=== PATIENT | female | born 1975 | race Hispanic/Latino ===

== ENCOUNTER 2019-08-24 07:46 | Outpatient (CLI) | payer BC ==
--- NOTE | 2019-08-24 09:19 | CT ---
CT ABDOMEN PELVIS WITH ORAL AND IV CONTRAST: HISTORY: Right lower quadrant pain FINDINGS: The lung bases are clear. The liver demonstrates decreased attenuation compared to the spleen, consis tent with fatty infiltration. No hepatic mass or abnormal biliary ductal dilatation is seen. The spleen, pancreas, adrenal glands and kidneys are normal. No calcified gallstones are seen. No aleksander e air, free fluid in lymphadenopathy seen in the abdomen or pelvis. The small bowel loops are not abnormally dilated. A normal-appearing appendix is seen. The aorta is of normal caliber without aneur ysm. No osteolytic or osteoblastic lesions are seen. The patient is post hysterectomy. IMPRESSION: 1. Fatty liver 2. No evidence of acute process.
== END 2019-08-24 07:47 | disposition home or self-care (01) ==
LOC: SCSCT 07:46
PROVIDERS: ATTEND Internal Medicine
DX: R10.31 Right lower quadrant pain (principal); K76.0 Fatty (change of) liver, not elsewhere classified
CPT/HCPCS: 74177

== ENCOUNTER 2020-01-28 10:00 | Outpatient (CLI) | payer BC | END 2020-01-28 10:01 | disposition home or self-care (01) | LOC: DTY/OP 10:00 | PROVIDERS: ATTEND Specialist | DX: Z01.818 Encounter for other preprocedural examination (principal); E66.01 Morbid (severe) obesity due to excess calories | CPT/HCPCS: 97802 ==

== ENCOUNTER 2020-02-09 04:20 | Outpatient (CLI) | payer BC, OTHER ==
[2020-02-09 17:39] LABS: SARS-CoV-2 MS2 Positive; SARS-CoV-2 N Gene Negative; SARS-CoV-2 S Gene Negative; SARS-CoV-2 orf1ab Negative
== END 2020-02-09 04:21 | disposition home or self-care (01) ==
LOC: ERS 04:20
PROVIDERS: ATTEND Specialist
DX: Z01.812 Encounter for preprocedural laboratory examination (principal); Z11.59 Encounter for screening for other viral diseases; E66.01 Morbid (severe) obesity due to excess calories
CPT/HCPCS: 87635; U0003

== ENCOUNTER 2020-02-11 | Outpatient (CLI) | payer BC | END 2020-02-11 08:36 | disposition home or self-care (01) | DX: E66.01 Morbid (severe) obesity due to excess calories (principal) ==

== ENCOUNTER 2020-04-14 07:23 | Outpatient (CLI) | payer BC, OTHER ==
[2020-04-14 14:07] LABS: #Eosinphils 0.2 thou/uL (0.0-0.7); #Lymphocytes 2.1 thou/uL (1.20-3.40); #Monocytes 0.5 thou/uL (0.11-0.59); #Neutrophils 6.3 thou/uL (1.40-6.50); %Basophils 0.3 % (0.0-1.0); %Eosinophils 2.3 % (0.0-10.0); %Lymphocytes 23.2 % (21.0-51.0); %Monocytes 5.4 % (0.0-10.0); %Neutrophils 68.8 % (42.0-75.0); Hemoglobin 14.5 g/dL (12.0-16.0); Mean Corpuscular HGB CONC 33.7 g/dL (32.0-36.0); Mean Corpuscular Hemoglobin 29.8 pg (27.0-31.0); Mean Corpuscular Volume 88.4 fL (78.0-98.0); Platelet Count 226 thou/uL (130-400); RBC Distribution Width 13.5 % (11.5-14.5); Red Blood Cell (RBC) Count 4.89 mill/uL (4.20-5.40); White Blood Cell (WBC) Count 9.2 thou/uL (4.8-10.8)
[2020-04-14 14:09] LABS: Hemoglobin A1c 5.7 % (4.0-6.0)
[2020-04-14 14:24] LABS: Anion Gap 14 mmol/L (10-20); BUN (Urea Nitrogen) 17 mg/dL (7.0-18.7); Calc. Creatinine Clearance 0 mL/min (70-130); Calcium 9.1 mg/dL (7.8-10.44); Carbon Dioxide 25 mmol/L (22-29); Chloride 105 mmol/L (98-107); Estimated GFR-MDRD 75; Glucose 141 mg/dL (70-105); Sodium 140 mmol/L (136-145)
[2020-04-15 14:14] LABS: SARS-CoV-2 MS2 Positive; SARS-CoV-2 N Gene Positive; SARS-CoV-2 S Gene Positive; SARS-CoV-2 by NAA DETECTED (NotDetected); SARS-CoV-2 orf1ab Negative
--- NOTE | 2020-04-15 15:37 | EKG ---
Test Reason : Blood Pressure : / mmHG Vent. Rate : 067 BPM Atrial Rate : 067 BPM P-R Int : 152 ms QRS Dur : 076 ms QT Int : 428 ms P-R-T Axes : 056 041 049 degrees QTc Int : 452 ms Normal sinus rhythm Normal ECG Confirmed by DASIA SERNA ([id number]) on 04/15/2020 3:37:09 PM Referred By: CURLY Confirmed By:DASIA SERNA
== END 2020-04-14 07:24 | disposition home or self-care (01) ==
LOC: LABBT 07:23
PROVIDERS: ATTEND Specialist
DX: U07.1 COVID-19 (principal); Z01.818 Encounter for other preprocedural examination; E66.01 Morbid (severe) obesity due to excess calories; Z68.37 Body mass index [BMI] 37.0-37.9, adult
CPT/HCPCS: 80048; 83036; 85025; 87635; 93005; 93010; U0003

== ENCOUNTER 2020-04-14 09:30 | Inpatient (IN) | payer BC, OTHER ==
[2020-04-14 16:23] VITALS: BMI 35.2
[2020-04-17] MEDS ORDERED: Acetaminophen 500 MG TAB ONE (06:32)
[2020-04-17] MEDS ORDERED: Heparin 5,000 UNITS/ML VIAL ONE (06:32)
[2020-04-17] MEDS ORDERED: Ketorolac Tromethamine 30 MG/ML VIAL ONE (06:32)
[2020-04-17] MEDS ORDERED: Scopolamine 1.5 mg/72 hour Patch ONE (06:32)
[2020-04-17] MEDS ORDERED: Lidocaine 1% w/Epinephrine 1:100K 20 ML VIAL ONE (06:51)
[2020-04-17] MEDS ORDERED: Bupivacaine 0.25% HCL 30 ML VIAL ONE (06:51)
[2020-04-17] MEDS ORDERED: Ketamine 50 MG/ML (10ML VIAL) ONE (07:11)
[2020-04-17] MEDS ORDERED: Fentanyl 100 MCG/2 ML VIAL ONE ×4 (07:11→11:11)
[2020-04-17] MEDS ORDERED: Ketorolac Tromethamine 30 MG/ML VIAL IVP PRN (10:03)
[2020-04-17] MEDS ORDERED: Ondansetron HCl/PF 4 MG/2 ML Vial IVP PRN (10:03)
[2020-04-17] MEDS ORDERED: PACU-Morphine 4MG/ML VIAL SLOW IVP PRN (10:03)
[2020-04-17] MEDS ORDERED: Promethazine HCl 25 MG/ML VIAL SLOW IVP PRN (10:03)
[2020-04-17] MEDS ORDERED: Morphine Sulfate 2 MG/ML SYRINGE SLOW IVP PRN (10:03)
[2020-04-17] MEDS ORDERED: Promethazine HCl 25 MG/ML VIAL IM PRN ×2 (10:03→10:52)
[2020-04-17] MEDS ORDERED: Meperidine HCl/PF 25 MG/ML VIAL SLOW IVP PRN (10:03)
[2020-04-17] MEDS ORDERED: HYDROmorphone 2 MG/ML VIAL SLOW IVP PRN (10:03)
[2020-04-17] MEDS ORDERED: HYDROmorphone 0.5 MG/0.5 ML SYRINGE ONE ×4 (10:12→11:00)
[2020-04-17] MEDS ORDERED: Lidocaine 1% PF 5 ML VIAL ONE (10:40)
[2020-04-17] MEDS ORDERED: PROPOFOL 200 MG/20 ML VIAL ONE (10:40)
[2020-04-17] MEDS ORDERED: Dexamethasone 20 MG/5 ML VIAL ONE (10:40)
[2020-04-17] MEDS ORDERED: Glycopyrrolate 0.2 MG/ML 5 ML SYRINGE ONE (10:40)
[2020-04-17] MEDS ORDERED: Ondansetron PF 4 MG/2 ML Vial ONE (10:40)
[2020-04-17] MEDS ORDERED: PHENYLEPHRINE-NS 100 MCG/ML 10 ML SYRINGE ONE (10:40)
[2020-04-17] MEDS ORDERED: Rocuronium Bromide 10 MG/ML (10ML VIAL) ONE (10:40)
[2020-04-17] MEDS ORDERED: Morphine 2 MG/ML VIAL SLOW IVP PRN (10:52)
[2020-04-17] MEDS ORDERED: hydrALAZINE 20 MG/ML VIAL SLOW IVP PRN (10:52)
[2020-04-17] MEDS ORDERED: Dextrose 50% Abboject 50 ML SYRINGE SLOW IVP PRN (10:52)
[2020-04-17] MEDS ORDERED: diphenhydrAMINE 50 MG/ML VIAL IVP PRN (10:52)
[2020-04-17] MEDS ORDERED: Ondansetron PF 4 MG/2 ML Vial IVP PRN (10:52)
[2020-04-17] MEDS ORDERED: Morphine 4 MG/ML VIAL SLOW IVP PRN (10:52)
[2020-04-17] MEDS ORDERED: Acetaminophen 325 MG/10.15 ML UDCUP PO PRN (10:52)
[2020-04-17] MEDS ORDERED: Dextrose 5% in Water 1,000 ML IV PRN (10:52)
[2020-04-17] MEDS: Ketorolac Tromethamine 30 MG/ML VIAL IVP SCH ×3 (12:15→23:49)
[2020-04-17] MEDS: D5 1/2 NS w/20 mEq KCL 1,000 ML IV SCH ×2 (12:16→20:27)
--- NOTE | 2020-04-17 12:35 | OP ---
DATE OF PROCEDURE: 04/17/2020 PREOPERATIVE DIAGNOSIS: Morbid obesity. POSTOPERATIVE DIAGNOSIS: Morbid obesity. PROCEDURE PERFORMED: Laparoscopic Carlyle-en-Y gastric bypass. DIRECTOR COUNSELING BUREAU: Jean-Paul Ness MD ANESTHESIA: General endotracheal. INDICATIONS: The patient is a 44-year-old female. She has obesity and obesity associated comorbidities. She also has severe reflux with regurgitation. In light of this, I have recommended a gastric bypass instead of a sleeve. DESCRIPTION OF PROCEDURE: Informed consent was obtained. The patient was taken to the operating room, where general endotracheal anesthesia obtained with the patient in supine position. Abdomen was prepped with ChloraPrep and draped in sterile fashion. Local anesthetic was infiltrated using a mixture of 1% lidocaine with epinephrine as well as 0.25% Marcaine. A 5-mm supraumbilical incision was created; through which, a Veress needle was passed in the peritoneal cavity and pneumoperitoneum established using carbon dioxide up to pressure of 15 mmHg. A 5-mm trocar port was passed through this same incision. Laparoscopic camera was passed through this port. Under direct vision, 4 additional ports were placed including bilateral subcostal 5 mm ports, a 12 mm right paramedian port, and a 15-mm left paramedian port. The omentum was dissected off a single adhesion to the anterior abdominal wall and then divided in the midline up to the transverse colon. The colon was reflected. The ligament of Treitz was identified at about 45 cm distal to the ligament of Treitz, the small bowel was divided with a single firing of the white load of the Nardin stapler. The small bowel was devascularized for about 5 cm on the distal aspect of the staple line. I then traced the small bowel 100 cm distally and created an anastomosis between the biliary limb and the Carlyle limb at that point using a single fire of the 60 mm white load of the stapler. The common enterotomy was closed with another fire of the same stapler. The mesenteric defect was closed with a couple of interrupted sutures of 3-0 Vicryl, placed in [id number] fashion. The patient was placed in reverse Trendelenburg. Jose L retractor was used to elevate the left lobe of the liver. The angle of His was dissected. Along the lesser curve, 5 cm from the GE junction, I dissected through the lesser omentum and into the lesser sac. I then fired a stapler load across the stomach in a transverse fashion using a blue load. The gastrotomy was then created on the distal segment of the stomach, and the anvil of the 25 mm EEA stapler was passed into the abdomen through the gastrotomy and into the upper pouch. Using the 5-mm band Passer, the anvil was delivered through the anterior wall of the gastric pouch just proximal to the staple line. The gastrotomy was closed with the another fire of the blue load of the stapler. The pouch was then completed with 2 fires of the blue load of the Nardin stapler up towards the angle of His. There was some oozing along some of the staple lines and this was quickly controlled with electrocautery. Attention was then turned to the devascularized Carlyle limb. An enterotomy was created and through this, the EEA stapler was advanced. The spike was delivered through the antimesenteric segment of the small bowel and was mated to the anvil in the gastric pouch. These two segments were approximated and anastomosed by firing the stapler. Staple was removed, and the donuts were inspected and found to be intact. The common enterotomy was then removed with the devascularized segment of the small bowel using another firing of the white load of the stapler. The gastrojejunal staple line was buttressed with 3 interrupted sutures of 3-0 Vicryl. An orogastric tube was advanced through the anastomosis into the small bowel, and the area was insufflated while under water to ensure that there was no air leak. The fascia at the 15-mm port site was closed with 0 Vicryl suture using a GraNee needle. All ports and instruments were removed under direct vision. Pneumoperitoneum was carefully evacuated. Additional local anesthetic was infiltrated at each port site. Skin edges were approximated with 4-0 Monocryl subcuticular suture. Dermabond was placed externally. There were no complications. The patient tolerated the procedure well and was taken to recovery room in stable condition. Job ID: [id number]
[2020-04-17] MEDS: Hydrocodone-Acetamin 15 ML UDCUP PO PRN (16:07)
[2020-04-17] MEDS ORDERED: Enoxaparin Sodium 40 MG/0.4 ML SYRINGE SC SCH (21:00)
[2020-04-18] MEDS: D5 1/2 NS w/20 mEq KCL 1,000 ML IV SCH ×2 (04:01→04:33)
[2020-04-18] MEDS: Hydrocodone-Acetamin 15 ML UDCUP PO PRN ×2 (04:38→08:12)
[2020-04-18 05:19] LABS: #Lymphocytes 1.9 thou/uL (1.20-3.40); #Monocytes 1.1 thou/uL (0.11-0.59); %Eosinophils 0.1 % (0.0-10.0); %Lymphocytes 12.4 % (21.0-51.0); %Neutrophils 80.5 % (42.0-75.0); Hemoglobin 12.8 g/dL (12.0-16.0); Mean Corpuscular HGB CONC 31.7 g/dL (32.0-36.0); Mean Corpuscular Hemoglobin 28.2 pg (27.0-31.0); Mean Platelet Volume 8.8 fL (7.4-10.4); Platelet Count 217 thou/uL (130-400); RBC Distribution Width 13.5 % (11.5-14.5); Red Blood Cell (RBC) Count 4.53 mill/uL (4.20-5.40); White Blood Cell (WBC) Count 14.9 thou/uL (4.8-10.8)
[2020-04-18 05:41] LABS: Anion Gap 10 mmol/L (10-20); BUN (Urea Nitrogen) 8 mg/dL (7.0-18.7); Calc. Creatinine Clearance 135 mL/min (70-130); Calcium 8.6 mg/dL (7.8-10.44); Carbon Dioxide 28 mmol/L (22-29); Chloride 105 mmol/L (98-107); Estimated GFR-MDRD 84; Glucose 133 mg/dL (70-105); Sodium 139 mmol/L (136-145)
[2020-04-18] MEDS: Ketorolac Tromethamine 30 MG/ML VIAL IVP SCH (06:22)
[2020-04-18 08:35] VITALS: BP 122/77; TEMP 99.1
[2020-04-18] MEDS ORDERED: Pantoprazole 40 MG VIAL IVP SCH (09:00)
[2020-04-18] MEDS ORDERED: Simvastatin 5 MG TAB PO SCH (21:00)
[2020-04-18] MEDS ORDERED: DULoxetine 60 MG CAP PO SCH (21:00)
[2020-04-19] MEDS ORDERED: Estradiol 1 MG TAB PO SCH (09:00)
[2020-04-19] MEDS ORDERED: Lisinopril 5 MG TAB PO SCH (09:00)
== END 2020-04-18 12:11 | disposition home or self-care (01) | DRG 621 ==
LOC: SURG A 04-17 05:58
PROVIDERS: ADMIT Specialist; ATTEND Specialist
PROC: 0D164ZA Bypass Stomach to Jejunum, Percutaneous Endoscopic Approach (ICD-10-PCS; principal; 2020-04-17)
DX: E66.01 Morbid (severe) obesity due to excess calories (principal); K21.9 Gastro-esophageal reflux disease without esophagitis; I10 Essential (primary) hypertension; G43.909 Migraine, unspecified, not intractable, without status migrainosus; E78.5 Hyperlipidemia, unspecified; F41.9 Anxiety disorder, unspecified; Z90.710 Acquired absence of both cervix and uterus; Z68.35 Body mass index [BMI] 35.0-35.9, adult; Z79.899 Other long term (current) drug therapy
CPT/HCPCS: 36415; 36416; 80048; 83036; 85025; 87635; 93005; 94760; C9113; J0694; J1100; J1170; J1644; J1650; J1885; J2270; J2405; J2704; J3010; J3480; S0020; U0003